=== PATIENT | female | born 1940 | race Caucasian/White ===

== ENCOUNTER 2016-06-19 15:21 | Emergency (ER) | payer MEDICARE, OTHER ==
[~2016-06-19] VITALS: Ht 165.1 cm; Wt 100.0 kg
[2016-06-19 15:33] VITALS: BP 143/92; PULSE 80; RESP 14; O2SAT 93
--- NOTE | 2016-06-19 15:41 | ED.REPORT ---
HPI- Female Date of Service Jun 19, 2016 ED Provider: Olvin Machado MD Pt is a 75 year old female with a hx of UTI, afib, osteoarthritis and a hiatal hernia presenting to the ED complaining of dysuria onset 5 days ago. Associated symptoms include urinary urgency and frequency. Denies fever, chills, vomiting or flank pain. Pt is currently taking Xarelto. Nursing Notes Stated Complaint: POSSIBLE UTI Chief Complaint: General Complaint Nursing Notes Reviewed: Yes Allergies: Coded Allergies: Sulfa (Sulfonamide Antibiotics) (Verified Allergy, Intermediate, rash, ) Scheduled Calcium Carb/Vit D3/Minerals (Calcium 600+D Plus Minerals Tb) 1 Each Tablet 1 EACH PO BID Celecoxib (Celecoxib) 100 Mg Capsule 100 MG PO BID Cephalexin (Cephalexin) 500 Mg Capsule 500 MG PO TID Cetirizine (Cetirizine) 5 Mg Tablet 10 MG PO MORNING Cholecalciferol (Vitamin D3) (Vitamin D3) 1,000 Unit Tab.chew 1,000 UNIT PO BID Lisinopril (Lisinopril) 20 Mg Tablet 20 MG PO DAILY Metoprolol Tartrate (Metoprolol Tartrate) 25 Mg Tablet 25 MG PO BID Montelukast (Montelukast) 10 Mg Tablet 10 MG PO HS Omeprazole (Omeprazole) 20 Mg Capsule.dr 20 MG PO DAILY Oxybutynin Chloride ER (Oxybutynin Chloride ER) 10 Mg Tab.er.24 10 MG PO DAILY Rivaroxaban (Xarelto) 20 Mg Tablet 20 MG PO DAILY Scheduled PRN Phenazopyridine (Phenazopyridine) 100 Mg Tablet 100 MG PO TID PRN PRN dysuria General Time Seen by MD: 15:40 Chief Complaint Dysuria Hx Obtained From: Patient Arrived By: Walk-in Sudden in Onset?: No Onset Occurred: 5 days ago Symptom Duration: Since onset Quality: Painful Radiation: No Flank left, No Flank right Severity: Current: Mild Severity: Maximum: Moderate Recent Healthcare: No recent doctor visit, No recent hospitalization Similar Sx Previous: Yes Past Medical History Past Medical History Notes: PCP: [facility] Past Medical History a fib, hiatal hernia, osteoarthritis Past Surgical History denies Smoking History Unknown if Ever Smoker Ambulatory Status Independent Review of Systems Constitutional: Denies: Chills, Fever GI: Denies: Vomiting Female: Reports: Dysuria, Urinary frequency, Urinary urgency, Urination increased, Denies: Flank pain Complete sys rev & neg: except as marked. Physical Exam Initial Vital Signs Vital Signs (First) Date Time Temp Pulse Resp B/P Pulse Ox O2 Delivery O2 Flow Rate FiO2 06/19/16 15:33 36.4 80 14 143/92 93 Room Air Initial VS: Reviewed General/Constitutional: Well-developed, Well-nourished Head / Eyes: Atraumatic, Normocephalic ENT: No scleral icterus Neck: Supple Respiratory: No respiratory distress Abdomen / GI: No distention Back: No CVA tenderness Skin: Warm, Dry, No cyanosis Neurologic: Alert, Oriented, Nonfocal Psychiatric: Mood/affect normal, Behavior normal, Normal thought content Interpretation & Diagnostics Lab Results Interpretation Test 06/19/16 15:49 Urine Color Yellow (YELLOW) Urine Appearance Cloudy (CLEAR,HAZY) Urine pH 7.0 (5.0-8.0) Urine Specific [place] 1.010 (1.003-1.035) Urine Protein Negativemg/dL (NEG,TRACE) Urine Glucose (UA) Negativemg/dL (NEGATIVE) Urine Ketones Negativemg/dL (NEGATIVE) Urine Occult Blood Moderate (NEGATIVE) Urine Nitrite Positive (NEGATIVE) Urine Bilirubin Negative (NEGATIVE) Urine Urobilinogen Normalmg/dL (NORMAL) Urine Leukocyte Esterase Large (NEGATIVE) Urine RBC 3-10/hpf (0-2) Urine WBC >50/hpf (0-5) Urine Epithelial Cells Few/hpf (NONE-MOD) Urine Crystals None seen (NONE SEEN) Urine Bacteria Many/hpf (NONE-FEW) Urine Hyaline Casts None/lpf (NONE) Urine Granular Casts None seen (NONE SEEN) Urine Waxy Casts None seen (NONE SEEN) Urine Red Blood Cell Casts None seen (NONE SEEN) Urine White Blood Cell Casts None seen (NONE SEEN) Urine Mucus None seen (None Seen) Urine Trichomonas None seen (NONE SEEN) Urine Yeast None (NONE SEEN) Urinalysis Comment None Urine Culture Reflexed Indicated Re-Eval/Medical Decision Re-Evaluation/Progress : Time of Eval: 16:56 Patient Status: Condition improved Re-Evaluation/Progress Note: Discussed plan for discharge. Pt understands and agrees. Counseled Regarding: Diagnosis, Lab results, Need for follow-up, When/why to return to ED Discharge & Departure Impression: Primary Impression: UTI (urinary tract infection) Urinary tract infection type: site unspecified Hematuria presence: without hematuria Qualified Code: N39.0 - Urinary tract infection, site not specified Disposition: Home Discharge Condition All VS Reviewed: Yes Condition: Improved Patient Instructions: Urinary Tract Infection in Women (ED) Additional Instructions: Emergency Department evaluation included an interview, examination and urinalysis. Urine was sent for culture. There is a urinary tract infection without evidence for kidney involvement. Take cephalexin 500 mg 3 times a day for 5 days. Pyridium as needed for painful urination. Return to emergency department for fever or shaking chills vomiting or flank pain. Follow-up with primary care next week. Referrals: OTHER,PHYSICIAN Scribe Attestation Portions of this note were transcribed by Edi Puente. I, Dr. Machado personally performed the history, physical exam and medical decision-making; I reviewed and confirmed the accuracy of the information in the transcribed note. Signed by : Lillian Clarke, 06/19/2016 and 1659. Olvin Machado MD Jun 19, 2016 15:41 EDI PUENTE Jun 19, 2016 15:48
[2016-06-19] MEDS ORDERED: Phenazopyridine 97.5 mg Tablet PO ONE (15:50)
[2016-06-19] MEDS ORDERED: CEPH500C PO (15:51)
[2016-06-19] MEDS ORDERED: PHEN-773 PO (15:52)
[2016-06-19] MEDS ORDERED: OMEP20CA11 PO (15:56)
[2016-06-19] MEDS ORDERED: LISI-567 PO (15:56)
[2016-06-19] MEDS ORDERED: OXYB10TA PO (15:56)
[2016-06-19] MEDS ORDERED: RIVA20TA PO (15:56)
[2016-06-19] MEDS ORDERED: CELE100C85 PO (15:56)
[2016-06-19] MEDS ORDERED: CHOL10008 PO (15:56)
[2016-06-19] MEDS ORDERED: CALC-83 PO (15:56)
[2016-06-19] MEDS ORDERED: CETI5TAB28 PO (15:56)
[2016-06-19] MEDS ORDERED: METO25TA6 PO (15:56)
[2016-06-19] MEDS ORDERED: MONT10TA23 PO (15:56)
[2016-06-19 16:31] LABS: APPEARANCE,URINE CLOUDY (CLEAR,HAZY); COLOR,URINE YELLOW (YELLOW); OCCULT BLOOD,URINE MODERATE (NEGATIVE); UROBILINOGEN,URINE NORMAL (NORMAL)
[2016-06-19 17:12] VITALS: BP 114/62; PULSE 82; RESP 16; O2SAT 96
[2016-06-19 17:13] VITALS: BP 114/62; PULSE 82; RESP 16; O2SAT 96
== END 2016-06-19 17:32 | disposition home or self-care (01) ==
LOC: SED 15:21
DX: N39.0 Urinary tract infection, site not specified (principal); B96.20 Unspecified Escherichia coli [E. coli] as the cause of diseases classified elsewhere; I48.91 Unspecified atrial fibrillation; M19.90 Unspecified osteoarthritis, unspecified site; Z87.19 Personal history of other diseases of the digestive system; Z87.440 Personal history of urinary (tract) infections; Z79.01 Long term (current) use of anticoagulants; Z88.2 Allergy status to sulfonamides